=== PATIENT | male | born 1950 | race Caucasian/White ===

== ENCOUNTER → 2023-08-25 12:41 | Outpatient (CLI) | payer MEDICARE, BC, SELFPAY ==
--- NOTE | 2023-08-25 11:53 | DI.RAD_ITS ---
Exam(s) XR FOOT LT COMPLETE EXAM: XR FOOT LT COMPLETE CLINICAL HISTORY: hallux rigidus of lt foot, M20.22. TECHNIQUE: 2D digital imaging was performed. COMPARISON: CR XR FOOT RT COMPLETE from 08/25/2023 FINDINGS: No evidence of acute fracture or diastasis of the Lisfranc joint. There are degenerative changes not ed at the tarsometatarsal joints of the 2nd and 3rd toes. There is prominent soft tissue swelling off the medial aspect of the metatarsophalangeal joint of the great toe and there is a small erosion at this level on the medial aspect of the head-neck junction. Also erosion seen more distally off the medial aspect of the distal middle phalanx, also with some soft tissue swelling adjacent to this. Calcific density noted in the soft tissues swelling areas. N o metallic foreign body. Vascular calcification is noted in the distal foot. IMPRESSION: Findings as above which are suspicious for gouty changes. However, there is suspicion for osteomyeli tis than further imaging with MRI recommended. DATA REPOSITORY: RADIATION DOSE DELIVERED:
--- NOTE | 2023-08-25 11:53 | DI.RAD_ITS ---
Exam(s) XR FOOT RT COMPLETE EXAM: XR FOOT RT COMPLETE CLINICAL HISTORY: Hallux rigidus of Rt foot, M20.21. TECHNIQUE: 2D digital imaging was performed. COMPARISON: CR XR FOOT LT COMPLETE from 08/25/2023 FINDINGS: 3 views No evidence of acute fracture. Degenerative changes are noted at the 2nd and 3rd tarsometatarsal luz maria nts, similar to the opposite side. There is also advanced degenerative change in the great toe metat arsophalangeal joint as well as an element of hallux valgus. There is soft tissue swelling medial to the head of the great toe metatarsal noted CIS, similar appearance but slightly less so than on the opposite-left side. No distinct erosions identified. Vascular calcification in the distal foot at m etatarsal levels noted. IMPRESSION: Findings as above combination degenerative changes, hallux valgus, and possible tophacious gout.. Th ere is advanced degenerative narrowing of the great toe metatarsophalangeal joint, more so than on th e opposite-left side. DATA REPOSITORY: RADIATION DOSE DELIVERED:
== END ==
PROVIDERS: PCP Internal Medicine; Visit Provider Podiatrist
DX: M20.21 Hallux rigidus, right foot (principal); M20.22 Hallux rigidus, left foot
CPT/HCPCS: 73630

== ENCOUNTER 2023-10-07 01:16 | Outpatient (CLI) | payer MEDICARE, BC, SELFPAY ==
[2023-10-07 11:00] LABS: ESR 32 mm/hr (0-20)
[2023-10-07 18:36] LABS: Rheumatoid Factor <8.6 IU/mL (<12.0)
[2023-10-08 09:31] LABS: Cyclic Citrullinated Peptide <2.5 U/mL (<5.0)
[2023-10-08 14:37] LABS: ANA Interpretation Positive (Negative); ANA Titer Pattern 1:320 Homogeneous
== END 2023-10-07 01:17 | disposition home or self-care (01) ==
LOC: LBO 01:16
PROVIDERS: PCP Internal Medicine; Visit Provider Podiatrist
DX: M77.41 Metatarsalgia, right foot (principal); M77.42 Metatarsalgia, left foot
CPT/HCPCS: 36415; 85652; 86200; 86038; 86140; 86431

== ENCOUNTER → 2024-02-05 14:19 | Outpatient (BNVA) | payer MEDICARE, BC, SELFPAY | PROVIDERS: PCP Family Medicine; Referring Provider Internal Medicine; Visit Provider Podiatrist | DX: M20.21 Hallux rigidus, right foot; G57.92 Unspecified mononeuropathy of left lower limb; M20.22 Hallux rigidus, left foot; E11.9 Type 2 diabetes mellitus without complications; M10.9 Gout, unspecified; M25.59 Pain in other specified joint | CPT/HCPCS: 99214 ==

== ENCOUNTER 2025-05-30 01:25 | Outpatient (CLI) | payer MEDICARE, BC, SELFPAY ==
--- NOTE | 2025-05-30 09:45 | DI.RAD_ITS ---
Exam(s) XR FOOT RT COMPLETE EXAM: XR FOOT RT COMPLETE CLINICAL HISTORY: Right foot pain,M79.671. TECHNIQUE: 2D digital imaging was performed. Three views. COMPARISON: CR XR FOOT RT COMPLETE from 08/25/2023 FINDINGS: BONES: No acute fracture is present. There are erosions of both medial and lateral aspects of the 1st metatarsal head as well as subchondral cyst formation. Findings are suspicious for gout. There has been progression of findings when compared the previous exam. JOINTS: No dislocation present. Severe narrowing of the 1st MTP joint with periarticular spurring. [id number] degenerative changes at the tarsal metatarsal joints. SOFT TISSUE: Some bunion formation. Vascular calcifications. IMPRESSION: Erosions of the 1st metatarsal head suspicious for gout. 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 DATA REPOSITORY: RADIATION DOSE DELIVERED:
== END 2025-05-30 01:45 ==
PROVIDERS: PCP Family Medicine; Visit Provider Podiatrist
DX: M19.071 Primary osteoarthritis, right ankle and foot (principal); I73.89 Other specified peripheral vascular diseases; M77.41 Metatarsalgia, right foot; M20.21 Hallux rigidus, right foot; M20.22 Hallux rigidus, left foot; E11.69 Type 2 diabetes mellitus with other specified complication; M10.9 Gout, unspecified
CPT/HCPCS: 93922; 99214; 73630